=== PATIENT | female | born 1940 | race Caucasian/White ===

== ENCOUNTER 2016-09-14 12:56 | Outpatient (CLI) | payer OTHER, MEDICAID ==
[~2016-09-14 12:56] MED LIST: ATEN-41 PO; EZET10TA PO; SPIRIVA INH; [UNRECOGNIZED DRUG - OTHER]
== END 2016-09-14 20:12 | disposition home or self-care (01) ==
LOC: SCT 12:56
PROVIDERS: ATTEND Specialist
DX: R91.1 Solitary pulmonary nodule (principal); K44.9 Diaphragmatic hernia without obstruction or gangrene; J47.9 Bronchiectasis, uncomplicated; I70.90 Unspecified atherosclerosis
CPT/HCPCS: 71250-TC

== ENCOUNTER 2017-03-14 12:41 | Outpatient (CLI) | payer OTHER, MEDICAID | END 2017-03-14 20:47 | disposition home or self-care (01) | LOC: SCT 12:41 | PROVIDERS: ATTEND Specialist | DX: J47.9 Bronchiectasis, uncomplicated (principal); I70.90 Unspecified atherosclerosis; K44.9 Diaphragmatic hernia without obstruction or gangrene; K31.4 Gastric diverticulum; R22.2 Localized swelling, mass and lump, trunk | CPT/HCPCS: 71250-TC ==

== ENCOUNTER 2020-05-17 11:54 | Emergency (ER) | payer OTHER, MEDICAID ==
[~2020-05-17] VITALS: Ht 162.6 cm; Wt 64.4 kg
[2020-05-17 11:54] VITALS: BP_SYST 124
--- NOTE | 2020-05-17 11:54 | NUR ---
BROUGHT IN BY [facility], TRIAGED, ALL VITAL SIGNS WERE NORMAL. PT RETURNED TO AMBULANCE RIG TO WAIT FOR AVAILABLE ER BED.
--- NOTE | 2020-05-17 12:02 | NUR ---
SPOKE WITH DAUGHTER AYAH KANDYCROW AT [phone]
[2020-05-17 12:23] LABS: BASOPHILS # (AUTO) 0.1 K/uL (0.0-0.2); EOSINOPHILS % (AUTO) 0.1 % (0.0-4.0); HEMATOCRIT 33.3 % (36-48); HEMOGLOBIN 10.6 g/dL (12.0-16.0); LYMPHOCYTES # (AUTO) 0.7 K/uL (1.0-5.5); LYMPHOCYTES % (AUTO) 10.8 % (20.5-51.5); MEAN CORPUSCULAR HEMOGLOBIN 24 pg (27-31); MEAN CORPUSCULAR HGB CONC 32 % (32-36); MEAN CORPUSCULAR VOLUME 74 fL (79.0-98.0); MONOCYTES # (AUTO) 0.6 K/uL (0.0-1.0); NEUTROPHILS # (AUTO) 4.9 K/uL (1.8-7.7); NEUTROPHILS % (AUTO) 78.1 % (40.0-70.0); PLATELET COUNT (AUTO) 246 K/uL (130-430); RED BLOOD CELL COUNT(AUTO) 4.52 MIL/uL (4.2-6.2); WHITE BLOOD COUNT (AUTO) 6.2 K/uL (4.8-10.8)
[2020-05-17 13:05] LABS: ANION GAP 10 (5-15); CALCIUM 8.4 mg/dL (8.4-11.0); CHLORIDE 103 mmol/L (98-107); CREATININE 1.02 mg/dL (0.55-1.30); GLUCOSE 144 mg/dL (70-99); POTASSIUM 3.7 mmol/L (3.5-5.1); SODIUM SERUM 138 mmol/L (136-145); UREA NITROGEN, BLOOD 24 mg/dL (8-21)
[2020-05-17 13:14] LABS: ALANINE AMINOTRANSFERASE 19 U/L (12-78); ASPARTATE AMINOTRANSFERASE 18 U/L (10-37); TOTAL BILIRUBIN 0.2 mg/dL (0.0-1.0)
--- NOTE | 2020-05-17 13:15 | NUR ---
RECEIVED, CALM, ALERT, NO DISTRESS, C/O SYNCOPE. BIB MEDICS FROM HOME CT AND LABS COMPLETED
--- NOTE | 2020-05-17 13:20 | NUR ---
DR LAINEZ IN TO ASSESS. NO COMPLAINTS
[2020-05-17] MEDS: NS 500 ML IV ONE (13:42)
[2020-05-17 13:55] VITALS: BP_SYST 136
--- NOTE | 2020-05-17 14:00 | NUR ---
Patient given written and verbal discharge instructions and verbalizes understanding. ER MD discussed with patient the results and treatment provided. Patient in stable condition. ID arm band removed. IV catheter removed intact and dressing applied, no active bleeding. Patient educated on pain management and to follow up with PMD. Pain Scale 0/10 Opportunity for questions provided and answered.
== END 2020-05-17 13:55 | disposition home or self-care (01) ==
LOC: SED 11:54
DX: R55 Syncope and collapse (principal); I10 Essential (primary) hypertension; E11.9 Type 2 diabetes mellitus without complications; J44.9 Chronic obstructive pulmonary disease, unspecified; E78.00 Pure hypercholesterolemia, unspecified; Z79.899 Other long term (current) drug therapy
CPT/HCPCS: 36415; 70450; 71045; 76376; 80053; 84484; 85025; 93005; 96360; 99285; J7040

== ENCOUNTER 2022-12-06 15:00 | Inpatient (IN) | payer OTHER, MEDICAID ==
[~2022-12-06] VITALS: Ht 160 cm; Wt 53.1 kg
[2022-12-06 15:10] VITALS: BP_SYST 115; PULSE 111; RESP 20; TEMP 98.4; O2SAT 98
[2022-12-06 17:15] LABS: ALANINE AMINOTRANSFERASE 6 U/L (12-78); ALBUMIN 1.6 g/dL (3.4-4.8); ASPARTATE AMINOTRANSFERASE 13 U/L (10-37); CALCIUM 7.8 mg/dL (8.4-11.0); CHLORIDE 97 mmol/L (98-107); CREATININE 0.76 mg/dL (0.55-1.30); GLUCOSE 183 mg/dL (74-106); LIPASE 44 U/L (73-393); TOTAL BILIRUBIN 0.3 mg/dL (0.0-1.0); UREA NITROGEN, BLOOD 9 mg/dL (8-21)
[2022-12-06 17:24] LABS: ANION GAP < 3 (5-15)
[2022-12-06] MEDS ORDERED: cefTRIAXone 1 GM IVPB PREMIX 50 ML IV ONE (17:30)
[2022-12-06] MEDS ORDERED: NACL 0.9% 1,000 ML IV ONE (17:30)
[2022-12-06 17:52] LABS: HEMOGLOBIN 8.9 g/dL (12.0-16.0); RED BLOOD CELL COUNT(AUTO) 4.21 MIL/uL (4.2-6.2); WHITE BLOOD COUNT (AUTO) 7.8 K/uL (4.8-10.8)
[2022-12-06 17:53] LABS: BASOPHILS % (AUTO) 0.5 % (0.0-2.0); EOSINOPHILS % (AUTO) 0.6 % (0.0-4.0); HEMATOCRIT 29.4 % (36-48); LYMPHOCYTES # (AUTO) 0.8 K/uL (1.0-5.5); LYMPHOCYTES % (AUTO) 10.7 % (20.5-51.5); MEAN CORPUSCULAR HEMOGLOBIN 21 pg (27-31); MEAN CORPUSCULAR HGB CONC 30 % (32-36); MEAN CORPUSCULAR VOLUME 70 fL (79.0-98.0); MONOCYTES # (AUTO) 0.5 K/uL (0.0-1.0); MONOCYTES % (AUTO) 6.9 % (1.7-9.3); NEUTROPHILS # (AUTO) 6.4 K/uL (1.8-7.7); NEUTROPHILS % (AUTO) 81.3 % (40.0-70.0); PLATELET COUNT (AUTO) 362 K/uL (130-430); RED CELL DISTRIBUTION WIDTH 19.1 % (9.0-15.0)
[2022-12-06] MEDS ORDERED: FLUT16SP16 NS (18:44)
[2022-12-06] MEDS ORDERED: FAMO20TA8 PO (18:44)
[2022-12-06] MEDS ORDERED: PRED5TAB PO (18:44)
[2022-12-06] MEDS ORDERED: AMLO5TAB92 PO (18:44)
[2022-12-06] MEDS ORDERED: METF-379 PO (18:44)
[2022-12-06] MEDS ORDERED: ATOR20TA64 PO (18:44)
[2022-12-06] MEDS ORDERED: ALBU90AE2 INH (18:44)
[2022-12-06] MEDS ORDERED: VALS1TAB75 PO (18:44)
[2022-12-06] MEDS ORDERED: UMEC62.5 IH (18:44)
[2022-12-06] MEDS ORDERED: IPRA3AMP9 HHN (18:44)
[2022-12-06] MEDS ORDERED: INSU100V11 SUBCUT (18:44)
[2022-12-06] MEDS ORDERED: AZITHROMYCIN 500 MG in NS 250 ML IV ONE (18:45)
[2022-12-06] MEDS ORDERED: KCL 20 mEq in 100 mL (PREMIX) 100 ML IV ONE (18:45)
[2022-12-06] MEDS ORDERED: AZITHROMYCIN 500 MG/VIAL (ZITHROMAX) IV ONE (19:05)
[2022-12-06 20:29] LABS: BILIRUBIN,URINE NEGATIVE (NEGATIVE); BLOOD, URINE NEGATIVE (NEGATIVE); CLARITY/URINE CLEAR (CLEAR); COLOR,URINE YELLOW (YELLOW); GLUCOSE,URINE NEGATIVE (NEGATIVE); KETONES,URINE NEGATIVE (NEGATIVE); LEUKOCYTE ESTERASE ,URINE NEGATIVE (NEGATIVE); NITRITE, URINE NEGATIVE (NEGATIVE); PH,URINE 7.5 (5.0-8.0); PROTEIN URINE TRACE (NEGATIVE); UROBILINOGEN,URINE 0.2 (0.2-1.0)
[2022-12-06 23:04] VITALS: BP_SYST 112; PULSE 74; TEMP 97.4; O2SAT 95
[2022-12-07] VITALS (10 sets, daily range): BP systolic 118–154; PULSE 75–95; RESP 18–20; TEMP 97.6–98.2; O2SAT 88–98
[2022-12-07] MEDS ORDERED: HYDROcodone/ACETAMIN 10-325 MG TAB PO PRN (11:15)
[2022-12-07] MEDS ORDERED: ACETAMINOPHEN 325 MG TABLET PO PRN ×2 (11:15→11:30)
[2022-12-07] MEDS ORDERED: NALOXONE HCL 0.4 MG/ML AMP (NARCAN) IVP PRN ×2 (11:15)
[2022-12-07] MEDS ORDERED: ONDANSETRON HCL 4 MG/2 ML VIAL IVP PRN (11:15)
[2022-12-07] MEDS ORDERED: HYDROcodone/ACETAMIN 5-325 MG TAB (NORCO/ VICODIN) PO PRN (11:15)
[2022-12-07 11:39] LABS: BASOPHILS % (AUTO) 0.5 % (0.0-2.0); EOSINOPHILS # (AUTO) 0.1 K/uL (0.0-0.4); EOSINOPHILS % (AUTO) 0.7 % (0.0-4.0); HEMATOCRIT 27.8 % (36-48); HEMOGLOBIN 8.2 g/dL (12.0-16.0); LYMPHOCYTES # (AUTO) 0.7 K/uL (1.0-5.5); LYMPHOCYTES % (AUTO) 9.2 % (20.5-51.5); MEAN CORPUSCULAR HEMOGLOBIN 21 pg (27-31); MEAN CORPUSCULAR HGB CONC 30 % (32-36); MEAN CORPUSCULAR VOLUME 71 fL (79.0-98.0); MONOCYTES # (AUTO) 0.5 K/uL (0.0-1.0); MONOCYTES % (AUTO) 6.9 % (1.7-9.3); NEUTROPHILS # (AUTO) 6.4 K/uL (1.8-7.7); PLATELET COUNT (AUTO) 341 K/uL (130-430); RED BLOOD CELL COUNT(AUTO) 3.94 MIL/uL (4.2-6.2); RED CELL DISTRIBUTION WIDTH 18.8 % (9.0-15.0); WHITE BLOOD COUNT (AUTO) 7.8 K/uL (4.8-10.8)
[2022-12-07 11:41] LABS: NEUTROPHILS % (AUTO) 82.7 % (40.0-70.0)
[2022-12-07 11:44] LABS: ANION GAP 3 (5-15); CALCIUM 7.3 mg/dL (8.4-11.0); CHLORIDE 101 mmol/L (98-107); CREATININE 0.56 mg/dL (0.55-1.30); GLUCOSE 166 mg/dL (74-106); UREA NITROGEN, BLOOD 6 mg/dL (8-21)
[2022-12-07] MEDS: INSULIN REGULAR, HUMAN 100 UNITS/ML, 3 ML VIAL (humuLIN R) SUBCUT PRN ×2 (12:09→21:57)
[2022-12-07] MEDS: NORMAL SALINE 5 ML DISP.SYRIN IVF SCH ×2 (13:51→21:14)
[2022-12-07] MEDS: KCL 20 mEq in 100 mL (PREMIX) 100 ML IV SCH ×2 (13:51→15:57)
[2022-12-07] MEDS: ALBUTEROL SULFATE 0.083% 2.5 MG/3 ML VIAL.NEB INH SCH ×3 (15:28→23:23)
[2022-12-07] MEDS: IPRATROPIUM BROM 0.5 MG/2.5 ML VIAL.NEB (ATROVENT) INH SCH ×3 (15:29→23:23)
[2022-12-07] MEDS: cefTRIAXone 1 GM IVPB PREMIX 50 ML IV SCH (17:40)
[2022-12-07] MEDS: AZITHROMYCIN 500 MG in NS 250 ML IV SCH (18:31)
[2022-12-07] MEDS: ATORVASTATIN 20 MG TABLET PO SCH (21:15)
[2022-12-07] MEDS: metFORMIN HCL 500 MG TABLET PO SCH (21:15)
[2022-12-07] MEDS: INSULIN GLARGINE 100 UNITS/ML, 10 ML VIAL SUBCUT SCH (21:56)
[2022-12-08] VITALS (9 sets, daily range): BP systolic 114–149; PULSE 64–104; RESP 16–22; TEMP 96.6–97.3; O2SAT 89–98
[2022-12-08] MEDS: IPRATROPIUM BROM 0.5 MG/2.5 ML VIAL.NEB (ATROVENT) INH SCH ×6 (03:00→23:00)
[2022-12-08] MEDS: ALBUTEROL SULFATE 0.083% 2.5 MG/3 ML VIAL.NEB INH SCH ×6 (03:00→23:00)
[2022-12-08 05:04] LABS: BASOPHILS # (AUTO) 0.1 K/uL (0.0-0.2); BASOPHILS % (AUTO) 0.9 % (0.0-2.0); EOSINOPHILS % (AUTO) 0.4 % (0.0-4.0); HEMATOCRIT 26.6 % (36-48); LYMPHOCYTES % (AUTO) 13.1 % (20.5-51.5); MEAN CORPUSCULAR HEMOGLOBIN 21 pg (27-31); MEAN CORPUSCULAR HGB CONC 30 % (32-36); MEAN CORPUSCULAR VOLUME 71 fL (79.0-98.0); MONOCYTES # (AUTO) 0.5 K/uL (0.0-1.0); MONOCYTES % (AUTO) 6.8 % (1.7-9.3); NEUTROPHILS # (AUTO) 6.2 K/uL (1.8-7.7); NEUTROPHILS % (AUTO) 78.8 % (40.0-70.0); PLATELET COUNT (AUTO) 330 K/uL (130-430); RED BLOOD CELL COUNT(AUTO) 3.75 MIL/uL (4.2-6.2); RED CELL DISTRIBUTION WIDTH 19.2 % (9.0-15.0); WHITE BLOOD COUNT (AUTO) 7.9 K/uL (4.8-10.8)
[2022-12-08 05:13] LABS: ALANINE AMINOTRANSFERASE 4 U/L (12-78); ALBUMIN 1.2 g/dL (3.4-4.8); ANION GAP 4 (5-15); ASPARTATE AMINOTRANSFERASE 11 U/L (10-37); CALCIUM 7.7 mg/dL (8.4-11.0); CHLORIDE 104 mmol/L (98-107); CREATININE 0.57 mg/dL (0.55-1.30); GLUCOSE 79 mg/dL (74-106); PHOSPHORUS 2.3 mg/dL (2.7-4.5); TOTAL BILIRUBIN 0.2 mg/dL (0.0-1.0); UREA NITROGEN, BLOOD 5 mg/dL (8-21)
[2022-12-08] MEDS ORDERED: KCL 40 mEq in 100 mL (PREMIX) 100 ML IV ONE ×2 (05:45→13:00)
[2022-12-08] MEDS ORDERED: KCL 40mEq in D5/0.45NS 1000 mL 1,000 ML IV ONE ×2 (06:00→06:11)
[2022-12-08] MEDS: NORMAL SALINE 5 ML DISP.SYRIN IVF SCH ×3 (06:16→22:14)
[2022-12-08] MEDS: amLODIPine BESYLATE 5 MG TABLET PO SCH (09:47)
[2022-12-08] MEDS: HYDROCHLOROTHIAZIDE 12.5 MG CAPSULE (HCTZ) PO SCH (09:47)
[2022-12-08] MEDS: FAMOTIDINE 20 MG TABLET PO SCH (09:48)
[2022-12-08] MEDS: EZETIMIBE 10 MG TABLET PO SCH (09:48)
[2022-12-08] MEDS: metFORMIN HCL 500 MG TABLET PO SCH ×2 (09:48→21:48)
[2022-12-08] MEDS: ATENOLOL 25 MG TABLET(TENORMIN) PO SCH (09:49)
[2022-12-08] MEDS: LOSARTAN POTASSIUM 50 MG TABLET (COZAAR) PO SCH (09:50)
[2022-12-08] MEDS ORDERED: K PHOS 30 MM in NS 250 ML IV ONE (12:00)
[2022-12-08] MEDS ORDERED: MAGNESIUM SULFATE 50 ML IV ONE (13:00)
[2022-12-08] MEDS: FLUTICASONE PROPIONATE 50 mCg/SPRAY 16 GM NS SCH (13:21)
[2022-12-08] MEDS: cefTRIAXone 1 GM IVPB PREMIX 50 ML IV SCH (17:51)
[2022-12-08] MEDS: AZITHROMYCIN 500 MG in NS 250 ML IV SCH (18:01)
[2022-12-08] MEDS: ATORVASTATIN 20 MG TABLET PO SCH (21:49)
[2022-12-08] MEDS: INSULIN GLARGINE 100 UNITS/ML, 10 ML VIAL SUBCUT SCH (21:49)
[2022-12-08] MEDS: INSULIN REGULAR, HUMAN 100 UNITS/ML, 3 ML VIAL (humuLIN R) SUBCUT PRN (22:02)
[2022-12-09] VITALS (10 sets, daily range): BP systolic 110–126; PULSE 65–79; RESP 16–20; TEMP 97–98.6; O2SAT 88–98
[2022-12-09] MEDS: IPRATROPIUM BROM 0.5 MG/2.5 ML VIAL.NEB (ATROVENT) INH SCH ×6 (03:00→23:58)
[2022-12-09] MEDS: ALBUTEROL SULFATE 0.083% 2.5 MG/3 ML VIAL.NEB INH SCH ×6 (03:00→23:57)
[2022-12-09 05:35] LABS: BASOPHILS % (AUTO) 0.4 % (0.0-2.0); EOSINOPHILS # (AUTO) 0.1 K/uL (0.0-0.4); EOSINOPHILS % (AUTO) 1.6 % (0.0-4.0); HEMATOCRIT 27.5 % (36-48); HEMOGLOBIN 8.3 g/dL (12.0-16.0); LYMPHOCYTES # (AUTO) 0.9 K/uL (1.0-5.5); LYMPHOCYTES % (AUTO) 10.7 % (20.5-51.5); MEAN CORPUSCULAR HEMOGLOBIN 21 pg (27-31); MEAN CORPUSCULAR HGB CONC 30 % (32-36); MEAN CORPUSCULAR VOLUME 70 fL (79.0-98.0); MONOCYTES # (AUTO) 0.7 K/uL (0.0-1.0); MONOCYTES % (AUTO) 8.2 % (1.7-9.3); NEUTROPHILS # (AUTO) 6.3 K/uL (1.8-7.7); NEUTROPHILS % (AUTO) 79.1 % (40.0-70.0); PLATELET COUNT (AUTO) 321 K/uL (130-430); RED BLOOD CELL COUNT(AUTO) 3.91 MIL/uL (4.2-6.2); RED CELL DISTRIBUTION WIDTH 19.2 % (9.0-15.0)
[2022-12-09 05:46] LABS: ANION GAP 5 (5-15); CALCIUM 7.5 mg/dL (8.4-11.0); CHLORIDE 102 mmol/L (98-107); CREATININE 0.53 mg/dL (0.55-1.30); GLUCOSE 102 mg/dL (74-106); UREA NITROGEN, BLOOD 10 mg/dL (8-21)
[2022-12-09 05:56] LABS: ERYTHROCYTE SEDIMENTATION RATE 112 MM/HR (0-20)
[2022-12-09] MEDS: NORMAL SALINE 5 ML DISP.SYRIN IVF SCH ×3 (06:13→22:07)
[2022-12-09] MEDS: INSULIN REGULAR, HUMAN 100 UNITS/ML, 3 ML VIAL (humuLIN R) SUBCUT PRN ×2 (06:15→17:05)
[2022-12-09] MEDS: FAMOTIDINE 20 MG TABLET PO SCH (09:37)
[2022-12-09] MEDS: metFORMIN HCL 500 MG TABLET PO SCH ×2 (09:38→22:03)
[2022-12-09] MEDS: EZETIMIBE 10 MG TABLET PO SCH (09:39)
[2022-12-09] MEDS: HYDROCHLOROTHIAZIDE 12.5 MG CAPSULE (HCTZ) PO SCH (09:39)
[2022-12-09] MEDS: amLODIPine BESYLATE 5 MG TABLET PO SCH (09:40)
[2022-12-09] MEDS: ATENOLOL 25 MG TABLET(TENORMIN) PO SCH (09:41)
[2022-12-09] MEDS: LOSARTAN POTASSIUM 50 MG TABLET (COZAAR) PO SCH (09:41)
[2022-12-09] MEDS: FLUTICASONE PROPIONATE 50 mCg/SPRAY 16 GM NS SCH (09:42)
[2022-12-09 13:56] LABS: BASOPHILS # (AUTO) 0.1 K/uL (0.0-0.2); BASOPHILS % (AUTO) 0.6 % (0.0-2.0); EOSINOPHILS # (AUTO) 0.1 K/uL (0.0-0.4); EOSINOPHILS % (AUTO) 1.2 % (0.0-4.0); HEMATOCRIT 30.5 % (36-48); LYMPHOCYTES % (AUTO) 10.6 % (20.5-51.5); MEAN CORPUSCULAR HEMOGLOBIN 21 pg (27-31); MEAN CORPUSCULAR HGB CONC 30 % (32-36); MEAN CORPUSCULAR VOLUME 70 fL (79.0-98.0); MONOCYTES # (AUTO) 0.7 K/uL (0.0-1.0); MONOCYTES % (AUTO) 7.8 % (1.7-9.3); NEUTROPHILS # (AUTO) 7.6 K/uL (1.8-7.7); PLATELET COUNT (AUTO) 370 K/uL (130-430); RED BLOOD CELL COUNT(AUTO) 4.37 MIL/uL (4.2-6.2); RED CELL DISTRIBUTION WIDTH 19.1 % (9.0-15.0); WHITE BLOOD COUNT (AUTO) 9.6 K/uL (4.8-10.8)
[2022-12-09 14:07] LABS: NEUTROPHILS % (AUTO) 79.8 % (40.0-70.0)
[2022-12-09 14:11] LABS: ANION GAP 4 (5-15); CALCIUM 7.7 mg/dL (8.4-11.0); CHLORIDE 101 mmol/L (98-107); GLUCOSE 94 mg/dL (74-106); UREA NITROGEN, BLOOD 10 mg/dL (8-21)
[2022-12-09] MEDS: cefTRIAXone 1 GM IVPB PREMIX 50 ML IV SCH (17:07)
[2022-12-09] MEDS: AZITHROMYCIN 500 MG in NS 250 ML IV SCH (17:08)
[2022-12-09] MEDS: ATORVASTATIN 20 MG TABLET PO SCH (22:03)
[2022-12-09] MEDS: INSULIN GLARGINE 100 UNITS/ML, 10 ML VIAL SUBCUT SCH (22:08)
[2022-12-10] VITALS (14 sets, daily range): BP systolic 100–115; PULSE 77–80; RESP 17–20; TEMP 98–98.7; O2SAT 90–98
[2022-12-10] MEDS: ALBUTEROL SULFATE 0.083% 2.5 MG/3 ML VIAL.NEB INH SCH ×6 (03:08→23:00)
[2022-12-10] MEDS: IPRATROPIUM BROM 0.5 MG/2.5 ML VIAL.NEB (ATROVENT) INH SCH ×6 (03:08→23:00)
[2022-12-10 05:58] LABS: ANION GAP 5 (5-15); CALCIUM 7.5 mg/dL (8.4-11.0); CHLORIDE 101 mmol/L (98-107); CREATININE 0.59 mg/dL (0.55-1.30); GLUCOSE 65 mg/dL (74-106); UREA NITROGEN, BLOOD 9 mg/dL (8-21)
[2022-12-10 06:01] LABS: BASOPHILS # (AUTO) 0.1 K/uL (0.0-0.2); BASOPHILS % (AUTO) 0.5 % (0.0-2.0); EOSINOPHILS # (AUTO) 0.1 K/uL (0.0-0.4); EOSINOPHILS % (AUTO) 0.7 % (0.0-4.0); HEMATOCRIT 28.4 % (36-48); HEMOGLOBIN 8.5 g/dL (12.0-16.0); LYMPHOCYTES # (AUTO) 0.9 K/uL (1.0-5.5); LYMPHOCYTES % (AUTO) 8.9 % (20.5-51.5); MEAN CORPUSCULAR HEMOGLOBIN 21 pg (27-31); MEAN CORPUSCULAR HGB CONC 30 % (32-36); MEAN CORPUSCULAR VOLUME 71 fL (79.0-98.0); MONOCYTES # (AUTO) 0.8 K/uL (0.0-1.0); MONOCYTES % (AUTO) 7.8 % (1.7-9.3); NEUTROPHILS % (AUTO) 82.1 % (40.0-70.0); PLATELET COUNT (AUTO) 352 K/uL (130-430); RED BLOOD CELL COUNT(AUTO) 4.03 MIL/uL (4.2-6.2); RED CELL DISTRIBUTION WIDTH 19.1 % (9.0-15.0); WHITE BLOOD COUNT (AUTO) 9.7 K/uL (4.8-10.8)
[2022-12-10 06:17] LABS: ERYTHROCYTE SEDIMENTATION RATE 113 MM/HR (0-20)
[2022-12-10] MEDS: NORMAL SALINE 5 ML DISP.SYRIN IVF SCH ×3 (06:38→21:59)
[2022-12-10] MEDS ORDERED: POTASSIUM CHLORIDE 20 MEQ TAB.PRT.SR PO ONE (07:30)
[2022-12-10] MEDS: FAMOTIDINE 20 MG TABLET PO SCH (11:23)
[2022-12-10] MEDS: POTASSIUM CHLORIDE 20 MEQ TAB.PRT.SR PO SCH ×2 (11:25→21:48)
[2022-12-10] MEDS: HYDROCHLOROTHIAZIDE 12.5 MG CAPSULE (HCTZ) PO SCH (11:27)
[2022-12-10] MEDS: LOSARTAN POTASSIUM 50 MG TABLET (COZAAR) PO SCH (11:28)
[2022-12-10] MEDS: metFORMIN HCL 500 MG TABLET PO SCH ×2 (11:30→21:48)
[2022-12-10] MEDS: EZETIMIBE 10 MG TABLET PO SCH (11:30)
[2022-12-10] MEDS: ATENOLOL 25 MG TABLET(TENORMIN) PO SCH (11:31)
[2022-12-10] MEDS: amLODIPine BESYLATE 5 MG TABLET PO SCH (11:32)
[2022-12-10] MEDS: FLUTICASONE PROPIONATE 50 mCg/SPRAY 16 GM NS SCH (11:33)
[2022-12-10] MEDS ORDERED: ROCPM1 IV (12:21)
[2022-12-10] MEDS: cefTRIAXone 1 GM IVPB PREMIX 50 ML IV SCH (18:39)
[2022-12-10] MEDS: AZITHROMYCIN 500 MG in NS 250 ML IV SCH (18:39)
[2022-12-10] MEDS: INSULIN GLARGINE 100 UNITS/ML, 10 ML VIAL SUBCUT SCH (21:00)
[2022-12-10] MEDS: ATORVASTATIN 20 MG TABLET PO SCH (21:48)
[2022-12-11 00:28] VITALS: BP_SYST 117; PULSE 74; RESP 18; TEMP 97.2; O2SAT 94
[2022-12-11] MEDS: IPRATROPIUM BROM 0.5 MG/2.5 ML VIAL.NEB (ATROVENT) INH SCH ×2 (03:00→07:31)
[2022-12-11] MEDS: ALBUTEROL SULFATE 0.083% 2.5 MG/3 ML VIAL.NEB INH SCH ×2 (03:00→07:31)
[2022-12-11 05:08] LABS: BASOPHILS % (AUTO) 0.4 % (0.0-2.0); EOSINOPHILS # (AUTO) 0.1 K/uL (0.0-0.4); EOSINOPHILS % (AUTO) 0.6 % (0.0-4.0); HEMATOCRIT 27.7 % (36-48); HEMOGLOBIN 8.4 g/dL (12.0-16.0); LYMPHOCYTES # (AUTO) 0.9 K/uL (1.0-5.5); LYMPHOCYTES % (AUTO) 10.4 % (20.5-51.5); MEAN CORPUSCULAR HEMOGLOBIN 22 pg (27-31); MEAN CORPUSCULAR HGB CONC 30 % (32-36); MEAN CORPUSCULAR VOLUME 72 fL (79.0-98.0); MONOCYTES # (AUTO) 0.7 K/uL (0.0-1.0); MONOCYTES % (AUTO) 7.3 % (1.7-9.3); NEUTROPHILS # (AUTO) 7.4 K/uL (1.8-7.7); NEUTROPHILS % (AUTO) 81.3 % (40.0-70.0); PLATELET COUNT (AUTO) 335 K/uL (130-430); RED BLOOD CELL COUNT(AUTO) 3.87 MIL/uL (4.2-6.2); RED CELL DISTRIBUTION WIDTH 18.5 % (9.0-15.0)
[2022-12-11 05:18] LABS: ALANINE AMINOTRANSFERASE 6 U/L (12-78); ALBUMIN 1.2 g/dL (3.4-4.8); ANION GAP 1 (5-15); ASPARTATE AMINOTRANSFERASE 14 U/L (10-37); CALCIUM 7.6 mg/dL (8.4-11.0); CHLORIDE 103 mmol/L (98-107); CREATININE 0.59 mg/dL (0.55-1.30); GLUCOSE 74 mg/dL (74-106); TOTAL BILIRUBIN 0.2 mg/dL (0.0-1.0); UREA NITROGEN, BLOOD 7 mg/dL (8-21)
[2022-12-11 05:22] LABS: ERYTHROCYTE SEDIMENTATION RATE 91 MM/HR (0-20)
[2022-12-11] MEDS: NORMAL SALINE 5 ML DISP.SYRIN IVF SCH (06:04)
[2022-12-11 07:30] VITALS: O2SAT 92
[2022-12-11 09:50] VITALS: BP_SYST 110; PULSE 90; RESP 18; TEMP 98.2; O2SAT 98
[2022-12-11] MEDS: FLUTICASONE PROPIONATE 50 mCg/SPRAY 16 GM NS SCH (10:18)
[2022-12-11] MEDS: LOSARTAN POTASSIUM 50 MG TABLET (COZAAR) PO SCH (10:19)
[2022-12-11] MEDS: metFORMIN HCL 500 MG TABLET PO SCH (10:21)
[2022-12-11] MEDS: HYDROCHLOROTHIAZIDE 12.5 MG CAPSULE (HCTZ) PO SCH (10:28)
[2022-12-11] MEDS: POTASSIUM CHLORIDE 20 MEQ TAB.PRT.SR PO SCH (10:29)
[2022-12-11] MEDS: FAMOTIDINE 20 MG TABLET PO SCH (10:30)
[2022-12-11] MEDS: amLODIPine BESYLATE 5 MG TABLET PO SCH (10:30)
[2022-12-11] MEDS: ATENOLOL 25 MG TABLET(TENORMIN) PO SCH (10:32)
[2022-12-11] MEDS: EZETIMIBE 10 MG TABLET PO SCH (10:32)
[2022-12-11 18:30] VITALS: O2SAT 95
== END 2022-12-11 09:50 | DRG 871 ==
LOC: SED 15:00 → STU 20:33 → SMU 12-09 21:15
PROVIDERS: ADMIT Preventive Medicine Preventive Medicine/Occupational Environmental Medicine; ATTEND Preventive Medicine Preventive Medicine/Occupational Environmental Medicine
DX: A41.9 Sepsis, unspecified organism (principal); E43 Unspecified severe protein-calorie malnutrition; J18.9 Pneumonia, unspecified organism; J96.00 Acute respiratory failure, unspecified whether with hypoxia or hypercapnia; J44.0 Chronic obstructive pulmonary disease with (acute) lower respiratory infection; J44.1 Chronic obstructive pulmonary disease with (acute) exacerbation; E87.6 Hypokalemia; E78.5 Hyperlipidemia, unspecified; E78.00 Pure hypercholesterolemia, unspecified; E83.51 Hypocalcemia; E83.52 Hypercalcemia; E88.09 Other disorders of plasma-protein metabolism, not elsewhere classified; I10 Essential (primary) hypertension; K21.9 Gastro-esophageal reflux disease without esophagitis; D64.9 Anemia, unspecified; E11.65 Type 2 diabetes mellitus with hyperglycemia; Z87.891 Personal history of nicotine dependence; Z68.20 Body mass index [BMI] 20.0-20.9, adult; Z99.81 Dependence on supplemental oxygen
CPT/HCPCS: 36415; 70450-TC; 71045; 76376; 80048; 80053; 81003; 83690; 83735; 83880; 84100; 84484; 85025; 85651-TC; 86738; 87040; 87081; 87449; 93005; 94640; 94664; 94760; 96365; 96366; 96367; 96368; 97110-GP; 97116-GP; 97530-GP; 99285; G0378; J0456; J0696; J1815; J3475; J3480; J7050; J7613

== ENCOUNTER 2023-01-25 19:57 | Inpatient (IN) | payer OTHER, MEDICAID ==
[~2023-01-25] VITALS: Ht 160 cm; Wt 50.5 kg
[~2023-01-25 19:57] MED LIST changes: +ALBU90AE2 INH; +AMLO5TAB92 PO; +ATOR20TA64 PO; +FAMO20TA8 PO; +FLUT16SP16 NS; +INSU100V11 SUBCUT; +IPRA3AMP9 HHN; +METF-379 PO; +PRED5TAB PO; +ROCPM1 IV; +UMEC62.5 IH; +VALS1TAB75 PO; -[UNRECOGNIZED DRUG - OTHER]
[2023-01-25 20:19] VITALS: BP_SYST 154; PULSE 95; RESP 20; TEMP 97.9; O2SAT 94
[2023-01-25 21:31] LABS: BASOPHILS % (AUTO) 0.3 % (0.0-2.0); EOSINOPHILS % (AUTO) 0.1 % (0.0-4.0); HEMATOCRIT 31.7 % (36-48); HEMOGLOBIN 10.3 g/dL (12.0-16.0); LYMPHOCYTES # (AUTO) 1.1 K/uL (1.0-5.5); LYMPHOCYTES % (AUTO) 10.2 % (20.5-51.5); MEAN CORPUSCULAR HEMOGLOBIN 27 pg (27-31); MEAN CORPUSCULAR HGB CONC 33 % (32-36); MEAN CORPUSCULAR VOLUME 83 fL (79.0-98.0); MONOCYTES # (AUTO) 0.7 K/uL (0.0-1.0); MONOCYTES % (AUTO) 6.6 % (1.7-9.3); NEUTROPHILS # (AUTO) 8.5 K/uL (1.8-7.7); NEUTROPHILS % (AUTO) 82.8 % (40.0-70.0); PLATELET COUNT (AUTO) 362 K/uL (130-430); RED CELL DISTRIBUTION WIDTH 23.9 % (9.0-15.0); WHITE BLOOD COUNT (AUTO) 10.3 K/uL (4.8-10.8)
[2023-01-25 21:54] LABS: PROTHROMBIN TIME 10.8 SECS (9.5-12.5)
[2023-01-25 22:35] LABS: ALANINE AMINOTRANSFERASE 5 U/L (12-78); ANION GAP 7 (5-15); ASPARTATE AMINOTRANSFERASE 9 U/L (10-37); CALCIUM 7.9 mg/dL (8.4-11.0); CARBON DIOXIDE 36 mmol/L (23-29); CHLORIDE 99 mmol/L (98-107); CREATININE 0.46 mg/dL (0.55-1.30); GLUCOSE 176 mg/dL (74-106); SODIUM SERUM 142 mmol/L (136-145); TOTAL BILIRUBIN 0.3 mg/dL (0.0-1.0); TOTAL PROTEIN, SERUM 5.3 g/dL (6.4-8.3); UREA NITROGEN, BLOOD 13 mg/dL (8-21)
[2023-01-25 22:39] LABS: POTASSIUM 2.5 mmol/L (3.5-5.1)
[2023-01-25 23:05] LABS: ANISOCYTOSIS 3+; HYPOCHROMASIA 1+; OVALOCYTES MODERATE; TEAR DROP CELLS FEW
[2023-01-25] MEDS ORDERED: POTASSIUM CHLORIDE 20 MEQ/PKT PACKET PO ONE (23:30)
[2023-01-25] MEDS ORDERED: IPRATROPIUM/ALBUTEROL SULFATE 3 ML AMPUL.NEB (DUONEB) INH ONE (23:30)
[2023-01-25] MEDS ORDERED: IPRATROPIUM/ALBUTEROL SULFATE 3 ML AMPUL.NEB (DUONEB) INH PRN (23:45)
[2023-01-26] VITALS (10 sets, daily range): BP systolic 137–154; PULSE 84–113; RESP 16–18; TEMP 97.3–98; O2SAT 89–97
[2023-01-26] MEDS ORDERED: LACT1TAB14 PO (00:22)
[2023-01-26] MEDS ORDERED: ASCO500T20 PO (00:22)
[2023-01-26] MEDS ORDERED: IPRA3AMP9 INH ×2 (00:22)
[2023-01-26] MEDS ORDERED: LOSA-415 PO (00:22)
[2023-01-26] MEDS ORDERED: GLUC1KIT IJ (00:22)
[2023-01-26] MEDS ORDERED: BUDESONIDE INH (00:22)
[2023-01-26] MEDS ORDERED: CLON0.1T PO (00:22)
[2023-01-26] MEDS ORDERED: SENN8.6T19 PO (00:22)
[2023-01-26] MEDS ORDERED: INSU100V44 SUBCUT (00:22)
[2023-01-26] MEDS ORDERED: MOM PO (00:22)
[2023-01-26] MEDS ORDERED: ONDA-8 TL (00:22)
[2023-01-26] MEDS ORDERED: DOCU250C14 PO (00:22)
[2023-01-26] MEDS ORDERED: ACET325T PO (00:22)
[2023-01-26] MEDS ORDERED: PRO40 PO (00:22)
[2023-01-26] MEDS ORDERED: MULT-1089 PO (00:22)
[2023-01-26] MEDS ORDERED: LOPE2CAP PO (00:22)
[2023-01-26] MEDS ORDERED: ZINC PO (00:22)
[2023-01-26] MEDS ORDERED: MELA3TAB41 PO (00:22)
[2023-01-26] MEDS ORDERED: BISA10SU61 RC (00:22)
[2023-01-26] MEDS ORDERED: INSU100V53 SUBCUT (00:22)
[2023-01-26] MEDS ORDERED: PRED10TA PO (00:22)
[2023-01-26] MEDS ORDERED: NALOXONE HCL 0.4 MG/ML AMP (NARCAN) IVP PRN ×2 (09:00)
[2023-01-26] MEDS ORDERED: ZOLPIDEM TARTRATE 5 MG TABLET PO PRN (09:00)
[2023-01-26] MEDS ORDERED: ONDANSETRON HCL 4 MG/2 ML VIAL IVP PRN (09:00)
[2023-01-26] MEDS ORDERED: MAGNESIUM SULFATE 50 ML IV PRN (09:00)
[2023-01-26] MEDS ORDERED: ACETAMINOPHEN 325 MG TABLET PO PRN ×2 (09:00→09:30)
[2023-01-26] MEDS ORDERED: MUPIROCIN 2% TOPICAL OINTMENT 22 GM NS PRN (09:00)
[2023-01-26] MEDS ORDERED: LORazepam 2 MG/ML VIAL IVP PRN (09:00)
[2023-01-26] MEDS ORDERED: DOCUSATE SODIUM 100 MG CAPSULE PO PRN (09:00)
[2023-01-26] MEDS ORDERED: MORPHINE 2 MG/ML INJ. SYRINGE IVP PRN ×2 (09:00)
[2023-01-26 10:09] LABS: BASOPHILS % (AUTO) 0.4 % (0.0-2.0); EOSINOPHILS % (AUTO) 0.5 % (0.0-4.0); HEMOGLOBIN 11.4 g/dL (12.0-16.0); LYMPHOCYTES % (AUTO) 11.2 % (20.5-51.5); MEAN CORPUSCULAR HEMOGLOBIN 28 pg (27-31); MEAN CORPUSCULAR HGB CONC 33 % (32-36); MEAN CORPUSCULAR VOLUME 85 fL (79.0-98.0); MONOCYTES # (AUTO) 0.6 K/uL (0.0-1.0); MONOCYTES % (AUTO) 6.9 % (1.7-9.3); NEUTROPHILS # (AUTO) 7.5 K/uL (1.8-7.7); PLATELET COUNT (AUTO) 368 K/uL (130-430); RED BLOOD CELL COUNT(AUTO) 4.11 MIL/uL (4.2-6.2); RED CELL DISTRIBUTION WIDTH 24.1 % (9.0-15.0); WHITE BLOOD COUNT (AUTO) 9.3 K/uL (4.8-10.8)
[2023-01-26 10:18] LABS: ANION GAP 3 (5-15); CALCIUM 8.3 mg/dL (8.4-11.0); CARBON DIOXIDE 39 mmol/L (23-29); CHLORIDE 100 mmol/L (98-107); CREATININE 0.49 mg/dL (0.55-1.30); GLUCOSE 186 mg/dL (74-106); SODIUM SERUM 142 mmol/L (136-145); UREA NITROGEN, BLOOD 9 mg/dL (8-21)
[2023-01-26 10:25] LABS: POTASSIUM 2.7 mmol/L (3.5-5.1)
[2023-01-26] MEDS: HEPARIN SODIUM,PORCINE 5,000 UNITS/ML VIAL SUBCUT SCH ×2 (10:35→22:44)
[2023-01-26] MEDS: LOSARTAN POTASSIUM 50 MG TABLET (COZAAR) PO SCH (10:36)
[2023-01-26] MEDS: FUROSEMIDE 20 MG/2 ML VIAL IVP SCH (10:48)
[2023-01-26] MEDS: POTASSIUM CHLORIDE 20 MEQ TAB.PRT.SR PO PRN (12:06)
[2023-01-26] MEDS: INSULIN REGULAR, HUMAN 100 UNITS/ML, 3 ML VIAL (humuLIN R) SUBCUT PRN ×2 (12:15→22:44)
[2023-01-26] MEDS: ALBUTEROL SULFATE 0.083% 2.5 MG/3 ML VIAL.NEB INH SCH ×2 (19:47→23:00)
[2023-01-26] MEDS ORDERED: INSULIN GLARGINE 100 UNITS/ML, 10 ML VIAL SUBCUT SCH (21:00)
[2023-01-27] VITALS (10 sets, daily range): BP systolic 116–138; PULSE 89–101; RESP 16–20; TEMP 97.5–98.8; O2SAT 77–99
[2023-01-27] MEDS: ALBUTEROL SULFATE 0.083% 2.5 MG/3 ML VIAL.NEB INH SCH ×6 (03:00→23:14)
[2023-01-27 05:42] LABS: BASOPHILS % (AUTO) 0.4 % (0.0-2.0); EOSINOPHILS % (AUTO) 0.3 % (0.0-4.0); HEMOGLOBIN 10.9 g/dL (12.0-16.0); LYMPHOCYTES # (AUTO) 0.8 K/uL (1.0-5.5); LYMPHOCYTES % (AUTO) 8.6 % (20.5-51.5); MEAN CORPUSCULAR HEMOGLOBIN 27 pg (27-31); MEAN CORPUSCULAR HGB CONC 32 % (32-36); MEAN CORPUSCULAR VOLUME 85 fL (79.0-98.0); MONOCYTES # (AUTO) 0.7 K/uL (0.0-1.0); MONOCYTES % (AUTO) 7.5 % (1.7-9.3); NEUTROPHILS # (AUTO) 7.8 K/uL (1.8-7.7); NEUTROPHILS % (AUTO) 83.2 % (40.0-70.0); PLATELET COUNT (AUTO) 358 K/uL (130-430); RED BLOOD CELL COUNT(AUTO) 4.02 MIL/uL (4.2-6.2); RED CELL DISTRIBUTION WIDTH 23.6 % (9.0-15.0); WHITE BLOOD COUNT (AUTO) 9.4 K/uL (4.8-10.8)
[2023-01-27 06:01] LABS: ANION GAP 3 (5-15); CALCIUM 8.4 mg/dL (8.4-11.0); CHLORIDE 102 mmol/L (98-107); CREATININE 0.54 mg/dL (0.55-1.30); POTASSIUM 3.2 mmol/L (3.5-5.1); SODIUM SERUM 145 mmol/L (136-145); UREA NITROGEN, BLOOD 10 mg/dL (8-21)
[2023-01-27] MEDS ORDERED: DEXTROSE 50% JECT 50 ML DISP.SYRIN ONE (06:43)
[2023-01-27] MEDS ORDERED: DEXTROSE 50% JECT 50 ML DISP.SYRIN IVP ONE (06:45)
[2023-01-27 06:56] LABS: CARBON DIOXIDE 40 mmol/L (23-29); GLUCOSE 40 mg/dL (74-106)
[2023-01-27] MEDS: LOSARTAN POTASSIUM 50 MG TABLET (COZAAR) PO SCH (08:32)
[2023-01-27] MEDS: FUROSEMIDE 20 MG/2 ML VIAL IVP SCH ×2 (08:33→21:17)
[2023-01-27] MEDS: HEPARIN SODIUM,PORCINE 5,000 UNITS/ML VIAL SUBCUT SCH ×2 (08:38→21:24)
[2023-01-27] MEDS ORDERED: METHYLPREDNISOLONE SOD SUCC 40 MG/ML VIAL IVP ONE (10:30)
[2023-01-27] MEDS ORDERED: FUROSEMIDE 20 MG/2 ML VIAL IVP ONE (10:30)
[2023-01-27] MEDS: AZITHROMYCIN 500 MG in NS 250 ML IV SCH (12:22)
[2023-01-27] MEDS: cefTRIAXone 1 GM in D5W 50 ML IV SCH (14:53)
[2023-01-27] MEDS: INSULIN REGULAR, HUMAN 100 UNITS/ML, 3 ML VIAL (humuLIN R) SUBCUT PRN ×2 (16:29→21:28)
[2023-01-27] MEDS: METHYLPREDNISOLONE SOD SUCC 40 MG/ML VIAL IVP SCH (21:00)
[2023-01-27] MEDS: POTASSIUM CHLORIDE 20 MEQ TAB.PRT.SR PO PRN (21:16)
[2023-01-27] MEDS: INSULIN GLARGINE 100 UNITS/ML, 10 ML VIAL SUBCUT SCH (21:26)
[2023-01-28] VITALS (12 sets, daily range): BP systolic 118–148; PULSE 82–96; RESP 18–22; TEMP 97.3–98.9; O2SAT 86–99
[2023-01-28] MEDS: ALBUTEROL SULFATE 0.083% 2.5 MG/3 ML VIAL.NEB INH SCH ×6 (03:36→23:51)
[2023-01-28 06:19] LABS: BASOPHILS % (AUTO) 0.2 % (0.0-2.0); EOSINOPHILS % (AUTO) 0.2 % (0.0-4.0); HEMATOCRIT 31.6 % (36-48); HEMOGLOBIN 10.1 g/dL (12.0-16.0); LYMPHOCYTES # (AUTO) 1.2 K/uL (1.0-5.5); LYMPHOCYTES % (AUTO) 13.3 % (20.5-51.5); MEAN CORPUSCULAR HEMOGLOBIN 26 pg (27-31); MEAN CORPUSCULAR HGB CONC 32 % (32-36); MEAN CORPUSCULAR VOLUME 81 fL (79.0-98.0); MONOCYTES # (AUTO) 0.6 K/uL (0.0-1.0); MONOCYTES % (AUTO) 6.3 % (1.7-9.3); NEUTROPHILS # (AUTO) 7.1 K/uL (1.8-7.7); PLATELET COUNT (AUTO) 370 K/uL (130-430); RED BLOOD CELL COUNT(AUTO) 3.89 MIL/uL (4.2-6.2); RED CELL DISTRIBUTION WIDTH 23.1 % (9.0-15.0); WHITE BLOOD COUNT (AUTO) 8.8 K/uL (4.8-10.8)
[2023-01-28 06:49] LABS: ANION GAP 3 (5-15); CALCIUM 8.5 mg/dL (8.4-11.0); CARBON DIOXIDE 38 mmol/L (23-29); CHLORIDE 100 mmol/L (98-107); CREATININE 0.53 mg/dL (0.55-1.30); GLUCOSE 154 mg/dL (74-106); POTASSIUM 3.4 mmol/L (3.5-5.1); SODIUM SERUM 141 mmol/L (136-145); UREA NITROGEN, BLOOD 17 mg/dL (8-21)
[2023-01-28] MEDS: FUROSEMIDE 20 MG/2 ML VIAL IVP SCH ×2 (08:27→20:52)
[2023-01-28] MEDS: LOSARTAN POTASSIUM 50 MG TABLET (COZAAR) PO SCH (08:27)
[2023-01-28] MEDS: HEPARIN SODIUM,PORCINE 5,000 UNITS/ML VIAL SUBCUT SCH ×2 (08:29→21:20)
[2023-01-28] MEDS: METHYLPREDNISOLONE SOD SUCC 40 MG/ML VIAL IVP SCH ×2 (08:36→20:50)
[2023-01-28] MEDS: INSULIN REGULAR, HUMAN 100 UNITS/ML, 3 ML VIAL (humuLIN R) SUBCUT PRN ×3 (11:31→21:19)
[2023-01-28] MEDS: AZITHROMYCIN 500 MG in NS 250 ML IV SCH (13:15)
[2023-01-28] MEDS: cefTRIAXone 1 GM in D5W 50 ML IV SCH (14:36)
[2023-01-28] MEDS: POTASSIUM CHLORIDE 20 MEQ TAB.PRT.SR PO PRN (14:46)
[2023-01-28] MEDS: INSULIN GLARGINE 100 UNITS/ML, 10 ML VIAL SUBCUT SCH (21:19)
[2023-01-29] VITALS (9 sets, daily range): BP systolic 143–151; PULSE 80–111; RESP 18–20; TEMP 97.8–98.7; O2SAT 93–99
[2023-01-29] MEDS: ALBUTEROL SULFATE 0.083% 2.5 MG/3 ML VIAL.NEB INH SCH ×4 (04:16→15:00)
[2023-01-29 04:57] LABS: BASOPHILS % (AUTO) 0.1 % (0.0-2.0); HEMATOCRIT 30.3 % (36-48); HEMOGLOBIN 9.7 g/dL (12.0-16.0); LYMPHOCYTES # (AUTO) 0.5 K/uL (1.0-5.5); LYMPHOCYTES % (AUTO) 5.2 % (20.5-51.5); MEAN CORPUSCULAR HEMOGLOBIN 26 pg (27-31); MEAN CORPUSCULAR HGB CONC 32 % (32-36); MEAN CORPUSCULAR VOLUME 82 fL (79.0-98.0); MONOCYTES # (AUTO) 0.1 K/uL (0.0-1.0); MONOCYTES % (AUTO) 1.4 % (1.7-9.3); NEUTROPHILS # (AUTO) 8.8 K/uL (1.8-7.7); NEUTROPHILS % (AUTO) 93.3 % (40.0-70.0); PLATELET COUNT (AUTO) 341 K/uL (130-430); RED BLOOD CELL COUNT(AUTO) 3.71 MIL/uL (4.2-6.2); RED CELL DISTRIBUTION WIDTH 22.9 % (9.0-15.0); WHITE BLOOD COUNT (AUTO) 9.4 K/uL (4.8-10.8)
[2023-01-29 05:11] LABS: ANION GAP 6 (5-15); CALCIUM 8.3 mg/dL (8.4-11.0); CARBON DIOXIDE 35 mmol/L (23-29); CHLORIDE 100 mmol/L (98-107); GLUCOSE 204 mg/dL (74-106); SODIUM SERUM 141 mmol/L (136-145); UREA NITROGEN, BLOOD 22 mg/dL (8-21)
[2023-01-29] MEDS: INSULIN REGULAR, HUMAN 100 UNITS/ML, 3 ML VIAL (humuLIN R) SUBCUT PRN ×2 (06:37→12:02)
[2023-01-29] MEDS: FUROSEMIDE 20 MG/2 ML VIAL IVP SCH (09:34)
[2023-01-29] MEDS: METHYLPREDNISOLONE SOD SUCC 40 MG/ML VIAL IVP SCH (09:34)
[2023-01-29] MEDS: LOSARTAN POTASSIUM 50 MG TABLET (COZAAR) PO SCH (09:56)
[2023-01-29] MEDS: HEPARIN SODIUM,PORCINE 5,000 UNITS/ML VIAL SUBCUT SCH (10:02)
[2023-01-29] MEDS: AZITHROMYCIN 500 MG in NS 250 ML IV SCH (12:12)
[2023-01-29] MEDS: cefTRIAXone 1 GM in D5W 50 ML IV SCH (14:32)
== END 2023-01-29 15:44 | DRG 640 ==
LOC: SED 19:57 → STU 23:41
PROVIDERS: ADMIT General Practice; ATTEND General Practice
DX: E87.6 Hypokalemia (principal); J96.01 Acute respiratory failure with hypoxia; J44.1 Chronic obstructive pulmonary disease with (acute) exacerbation; E44.0 Moderate protein-calorie malnutrition; Z68.1 Body mass index [BMI] 19.9 or less, adult; D63.8 Anemia in other chronic diseases classified elsewhere; I10 Essential (primary) hypertension; E78.00 Pure hypercholesterolemia, unspecified; J84.10 Pulmonary fibrosis, unspecified; E11.9 Type 2 diabetes mellitus without complications; Z66 Do not resuscitate
CPT/HCPCS: 36415; 71045; 80048; 80053; 82962; 83037; 83735; 83880; 84484; 85025; 85610-TC; 85730-TC; 87081; 93005; 94640; 94760; 97110-GP; 97116-GP; 97530-GP; 99285; G0378; J0456; J0696; J1030; J1644; J1815; J1940; J2405; J7050; J7060